=== PATIENT | male | born 1975 | race Caucasian/White ===

== ENCOUNTER 2016-10-16 13:42 | Observation (INO) | payer OTHER ==
--- NOTE | ~2016-10-16 | EKG ---
PATIENT: ZOE ROJO UNIT #: [id number] Ventricular Rate: 67 BPM Atrial Rate: 67 BPM P-R Interval: 144 ms QRS Duration: 98 ms Q-T Interval: 396 ms QTC Calculation(Bezet): 418 ms P Munger: 36 degrees Calculated R Munger: 78 degrees Calculated T Munger: 22 degrees Diagnosis Line: Normal sinus rhythm Diagnosis Line: Normal ECG Diagnosis Line: When compared with ECG of 16-JUL-2016 08:50, Diagnosis Line: No significant change was found Diagnosis Line: Confirmed by MEHRAN MACHADO MD ([id number]) on 10/19/2016 Diagnosis Line: 7:35:11 AM INTERPRETING MD: JEANNETTE PALAFOX
--- NOTE | ~2016-10-16 | DS ---
Unit #: [id number] #: [id number] Patient: ZOE ROJO JR [id number] [address] [place], [place] [address] [id number] MR#: [id number] NAME: ZOE ROJO JR ROOM: 309 Age: 41 Sex: M Admission Date: 10/16/2016 : 1975 Discharge Date: 10/17/2016 Attending Physician: Mimi Harrington M.D. Primary Care Physician: Dana Silva M.D. DISCHARGE SUMMARY DISCHARGE DIAGNOSES 1. Unstable angina. 2. Status post cardiac catheterization on 10/17/[address] Carroll at [facility], that reveals the following results. a. Left main normal. b. Left anterior descending artery with mild plaquing at the origin of the first diagonal branch. Posterior division of the first diagonal branch with 80% stenosis, but the vessel is less than 1.25 mm in diameter. c. Circumflex artery is moderate-sized nondominant vessel with second marginal branch with a long segment stenosis of 75% to 80%. First marginal branch was less than 2 mm in diameter, but shows an 80% to 90% stenosis near the origin. Posterior marginal branch is normal. d. Right coronary artery, the proximal third with 30% stenosis. The distal 2/3 is normal. Posterior descending artery with 80% to 90% stenosis mid segment. Ejection fraction of 55%. 3. Hypertension. 4. Hyperlipidemia. 5. Diabetes mellitus type 2. 6. Nonsmoker. 7. Family history of coronary artery disease. DISCHARGE MEDICATIONS Januvia 100 mg a.c. dinner, atorvastatin 80 mg q.h.s., carvedilol 3.125 mg b.i.d., lisinopril 10 mg daily, aspirin 81 mg daily, meloxicam 15 mg daily, Plavix 75 mg daily, Glucovance 5/500 mg two tablets b.i.d. to continue until 10/18/2016, Imdur 30 mg daily, nitroglycerin 0.4 mg sublingual q.5 minutes x3 p.r.n. chest pain, Viagra p.r.n. HOSPITAL COURSE This is a 41-year-old white male, who presented to the office with a complaint of intermittent episodes of chest pain for the past few months. His shoulder pain is unrelated to his heart, but he is scheduled to go for left shoulder surgery at some point. He has dyspnea that accompanies chest pain and a complaint of weakness. He came in for scheduled cardiac catheterization, because of multiple risk factors for ischemic heart disease. Cardiac catheterization findings of 90% stenosis of the first marginal branch of the circumflex artery, which is most significant, but the artery was less than 2 mm in diameter. The first diagonal branch also had 80% stenosis, but the vessel was 1.2 mm in diameter. Second marginal with 75% to 80% stenosis. Right coronary artery, PDA had 80% to 90% stenosis. He had normal left ventricular systolic function. The patient has been advised to start on medical therapy with long-acting nitrates and Unit #: [id number] #: [id number] Patient: ALIA JASON,ZOE BURKETT beta-blockers. He was started on dual-antiplatelet therapy with aspirin and Plavix. If he continues to have chest pain, FFR should be performed across the long segment stenosis of the circumflex first marginal branch. PCI and stent insertion could be performed on the first marginal branch and PDA if angina continues. He would need aggressive risk factor modification and enrollment in cardiac rehab. His right radial site is healing well. His heart rate and blood pressure are stable. He can be discharged after his bedrest is completed. PHYSICAL EXAMINATION VITAL SIGNS: Blood pressure 109/72, heart rate 92, temperature 97.8. CHEST: Clear to auscultation. HEART: S1 and S2. Regular rate and rhythm. ABDOMEN: Soft and nontender with bowel sounds present. EXTREMITIES: Without leg edema. Right radial with 4+ pulse. No hematoma or bruising. Normal sensation. DISCHARGE INSTRUCTIONS 1. The patient will be discharged home today. 2. Follow up with Dr. Harrington on 12/25/2016 at 12:30 p.m. 3. He may return to work and normal activities on 10/19/2016 without restrictions. 4. Diet is healthy heart with consistent carbs. 5. The patient has been started on dual-antiplatelet therapy with aspirin and Plavix. He was also started on nitrates and beta-blockers. 6. The patient has been instructed on the use of nitroglycerin. He also says that he uses Viagra p.r.n. at home. He has been instructed not to take Viagra within 12 hours of his Imdur or sublingual nitroglycerin to prevent fatal fall of his blood pressure. If he is to have chest pain, no nitroglycerin to be taken are accepted by EMS within 12 hours of Viagra. 7. Cardiac rehab was recommended for the patient; however, when they spoke to the patient, he was given information and he said he could not consent at this time, because of his work schedule. He is to consider a home-based cardiac rehab. Dictated by... Eloina Carr/eloise TD: 10/18/2016 12:12 JOB #: [id number] CC: Mimi Harrington M.D. DISCHARGE SUMMARY X Erik Diehl APRN X DISCHARGE SUMMARY
[~2016-10-16 13:42] MED LIST: AFRIN3 ML; ALBUTEROL17 GM INH; AMOXICILLIN500 M1 PO; ANTI-FUNGAL15 GM TP; ATARAX PO; ATORVASTATIN CA20 MG PO; BACTRIM 400-801 TA1 PO; BACTRIM DS TABL1 TA1 PO; BACTRIM DS TABL1 TAB PO; CHOLESTEROL MED; CIPRO PO; CLEOCIN HCL300 M1 PO; CORICIDIN HBP F1 TAB PO; DIABETES MED; DICLOFENAC PO; DIFLUCAN PO; DOXYCYCLINE150 MG PO; FISH OIL 1,001000 M1 PO; GLUCOPHAGE500 MG PO; GLUCOTROL PO; GLUCOTROL XL PO; GLUCOTROL XL10 MG PO; GLUCOVANCE 5/501 TA2 PO; GLUCOVANCE 5/501 TA3 PO; GLYBURIDE-METFO1 TA3 PO; IBUPROFEN800 MG PO; IMMODIUM1 MG/5 ML PO; JANUVIA PO; KEFLEX PO; KEFLEX500 M1 PO; KEFLEX500 MG PO; LIPITOR PO; LIPITOR20 MG PO; LISINOPRIL; LISINOPRIL PO; LISINOPRIL10 MG PO; LISINOPRIL5 MG PO; METFORMIN PO; NAFTIN45 GM TP; NAPROSYN500 MG PO; NAPROXEN PO; NO MEDICATIONS; PEPCID AC20 M2 PO; PHENERGAN W/CO120 ML PO; ROBAXIN500 MG PO; ROBITUSSIN ALL118 ML PO; TESSALON200 MG PO; TORADOL10 MG PO; TYLENOL #3 PO; ULTRAM PO; VOLTAREN50 MG PO; VOLTAREN75 MG PO; ZESTRIL5 MG PO; ZITHROMAX PO; ZITHROMAX1 G/PKT PO; ZOFRAN ODT4 MG PO; [UNRECOGNIZED DRUG - REMARK]
[2016-10-16 22:51] LABS: BASOPHIL# 0.1 X10e3 (0-0.3); BASOPHIL% 1.4 % (0-2.5); EOSINOPHIL# 0.3 X10e3 (0-0.7); HEMATOCRIT 42.6 % (38.0-50.0); HEMOGLOBIN 14.7 gm/dL (13.0-16.0); LYMPHOCYTE# 2.8 X10e3 (1.0-3.5); LYMPHOCYTE% 32.1 % (17.0-45.0); MEAN CELL VOLUME 88.7 FL (83-96); MEAN CORPUSCULAR HEMOGLOBIN 30.7 PG (28-34); MEAN CORPUSCULAR HGB CONC 34.6 g/dL (30-36); MEAN PLATELET VOLUME 7.3 FL (6.5-11.5); MONOCYTE# 0.7 X10e3 (0-1.0); MONOCYTE% 8.6 % (3.0-12.0); NEUTROPHIL# 4.8 X10e3 (1.5-7.1); NEUTROPHIL% 54.9 % (40-75); PLATELET COUNT 251 X10e3 (140-420); RED CELL DISTRIBUTION WIDTH 12.8 % (11.0-15.5); WHITE BLOOD COUNT 8.6 X10e3 (4.0-10.5)
[2016-10-16 22:52] LABS: DIFF IND NO
[2016-10-16] MEDS ORDERED: ATORVASTATIN CA20 MG PO (23:05)
[2016-10-16] MEDS ORDERED: JANUVIA PO (23:06)
[2016-10-16] MEDS ORDERED: MELOXICAM15 MG PO (23:08)
[2016-10-16 23:17] LABS: BLOOD UREA NITROGEN 14 mg/dL (9-23); CALCIUM SERUM 9.4 mg/dL (8.4-10.2); CARBON DIOXIDE 27 mmol/L (22-31); CHLORIDE 104 mmol/L (100-111); CREATININE SERUM 0.8 mg/dL (0.6-1.4); GLOM FILT RATE Estimated ABOVE60 mL/min (>60); GLUCOSE FASTING 206 mg/dL (70-110); POTASSIUM 3.8 mmol/L (3.5-5.1); SODIUM 139 mmol/L (135-145)
[2016-10-17 00:14] LABS: INR 1.1; PROTHROMBIN TIME (PATIENT) 11.2 SECONDS (9.6-11.5)
[2016-10-17 06:27] LABS: BASOPHIL# 0.1 X10e3 (0-0.3); BASOPHIL% 1.4 % (0-2.5); EOSINOPHIL# 0.3 X10e3 (0-0.7); EOSINOPHIL% 3.2 % (0.0-7.0); HEMATOCRIT 43.4 % (38.0-50.0); HEMOGLOBIN 14.7 gm/dL (13.0-16.0); LYMPHOCYTE# 2.9 X10e3 (1.0-3.5); MEAN CELL VOLUME 89.5 FL (83-96); MEAN CORPUSCULAR HEMOGLOBIN 30.4 PG (28-34); MONOCYTE# 0.8 X10e3 (0-1.0); MONOCYTE% 9.2 % (3.0-12.0); NEUTROPHIL# 4.7 X10e3 (1.5-7.1); NEUTROPHIL% 53.2 % (40-75); PLATELET COUNT 257 X10e3 (140-420); RED BLOOD COUNT 4.85 X10e (3.90-5.60); WHITE BLOOD COUNT 8.9 X10e3 (4.0-10.5)
[2016-10-17 06:31] LABS: DIFF IND NO
[2016-10-17 06:38] LABS: INR 1.1; PARTIAL THROMBOPLASTIN TIME 27.7 SECONDS (23.5-31.3); PROTHROMBIN TIME (PATIENT) 11.4 SECONDS (9.6-11.5)
[2016-10-17 07:16] LABS: BLOOD UREA NITROGEN 16 mg/dL (9-23); BUN/CREATININE RATIO 26.66; CARBON DIOXIDE 27 mmol/L (22-31); CHLORIDE 105 mmol/L (100-111); CREATININE SERUM 0.6 mg/dL (0.6-1.4); GLOM FILT RATE Estimated ABOVE60 mL/min (>60); GLUCOSE FASTING 131 mg/dL (70-110); POTASSIUM 3.7 mmol/L (3.5-5.1); SODIUM 143 mmol/L (135-145)
[2016-10-17] MEDS ORDERED: CLOPIDOGREL75 MG PO (15:12)
[2016-10-17] MEDS ORDERED: COREG3.125 MG PO (15:12)
[2016-10-17] MEDS ORDERED: ASPIRIN81 M2 PO (15:12)
[2016-10-17] MEDS ORDERED: LIPITOR80 MG PO (15:12)
[2016-10-17] MEDS ORDERED: NITROGLYGERIN0.4 MG SL (15:13)
[2016-10-17] MEDS ORDERED: ISOSORBIDE MONO30 MG PO (15:13)
[2016-10-17] MEDS ORDERED: VIAGRA PO (15:14)
== END 2016-10-17 19:45 | disposition home or self-care (01) | DRG 303 ==
LOC: C3A PCU 13:42
PROVIDERS: Internal Medicine Cardiovascular Disease
DX: I25.118 Atherosclerotic heart disease of native coronary artery with other forms of angina pectoris (principal); E78.5 Hyperlipidemia, unspecified; I10 Essential (primary) hypertension; E11.3293 Type 2 diabetes mellitus with mild nonproliferative diabetic retinopathy without macular edema, bilateral; E78.00 Pure hypercholesterolemia, unspecified; Z82.49 Family history of ischemic heart disease and other diseases of the circulatory system; M19.90 Unspecified osteoarthritis, unspecified site; Z91.19 Patient's noncompliance with other medical treatment and regimen; Z88.8 Allergy status to other drugs, medicaments and biological substances; Z79.84 Long term (current) use of oral hypoglycemic drugs; Z79.82 Long term (current) use of aspirin; Z79.02 Long term (current) use of antithrombotics/antiplatelets
CPT/HCPCS: 80048; 82947; 84484; 85025; 85610; 85730; 93005; 96372; C1769; C1887; C1894; G0378; J1644; J1650; J1815; J2250; J2405; J3010